=== PATIENT | male | born 1960 | race Caucasian/White ===

== ENCOUNTER 2023-05-17 04:21 | Emergency (ER) | payer BC ==
[~2023-05-17] VITALS: Ht 182.9 cm; Wt 79.4 kg
[2023-05-17] MEDS ORDERED: DEXAMETHASONE SOD PHOSPHATE 10 MG INJ ONE (05:36)
[2023-05-17] MEDS ORDERED: CEFTRIAXONE 1 G VIAL ONE (05:37)
[2023-05-17] MEDS ORDERED: CLINDAMYCIN 600 MG PIGGYBACK**ER OMNI IV ONE (05:50)
[2023-05-17] MEDS: DEXAMETHASONE SOD PHOSPHATE 4 MG INJ IV ONE (05:55)
[2023-05-17] MEDS: CLINDAMYCIN PHOSPHATE IV 600 MG in IV DEXTROSE 5% 100 ML IV ONE (05:55)
[2023-05-17] MEDS: IV NORMAL SALINE 500 ML IV ONE (05:55)
[2023-05-17 06:01] LABS: BASOPHILS % (AUTO) 0.4 % (0.0-2.0); EOSINOPHILS # (AUTO) 0.1 K/uL (0.0-0.7); EOSINOPHILS % (AUTO) 0.8 % (0.0-7.0); HEMATOCRIT 41.6 % (36.7-47.1); HEMOGLOBIN 14.3 g/dL (12.5-16.3); LYMPHOCYTES # (AUTO) 1.8 K/uL (0.8-4.8); LYMPHOCYTES % (AUTO) 18.3 % (20.5-51.5); MEAN CORPUSCULAR HEMOGLOBIN 31.4 uug (23.8-33.4); MEAN CORPUSCULAR HGB CONC 34 g/dL (32.5-36.3); MEAN CORPUSCULAR VOLUME 91.6 fL (73.0-96.2); MONOCYTES # (AUTO) 0.8 K/uL (0.1-1.30); MONOCYTES % (AUTO) 8.1 % (0.0-11.0); NEUTROPHILS % (AUTO) 72.4 % (38.5-71.5); PLATELET COUNT (AUTO) 238 K/uL (152-348); RED BLOOD CELL COUNT(AUTO) 4.54 MIL/uL (4.06-5.63); RED CELL DISTRIBUTION WIDTH 13.1 % (12.1-16.2); WHITE BLOOD COUNT (AUTO) 9.7 K/uL (3.6-10.2)
[2023-05-17 06:06] LABS: DIFFERENTIAL COMMENT 1
[2023-05-17 06:16] LABS: ALBUMIN 3.4 g/dL (3.4-5.0); BILIRUBIN,DIRECT 0.1 mg/dL (0.0-0.2); BILIRUBIN,TOTAL 0.8 mg/dL (0.2-1.0); CALCIUM 9.5 mg/dL (8.5-10.1); CREATININE 0.7 mg/dL (0.6-1.3); POTASSIUM 5.3 mmol/L (3.5-5.1); TOTAL PROTEIN, SERUM 7.8 g/dL (6.4-8.2)
[2023-05-17] MEDS ORDERED: IOHEXOL 300MG/ML 100 ML INFUS..BTL ONE (06:49)
[2023-05-17] MEDS ORDERED: SWABABLE VALVE TRANSFER SET EA MC ONE (06:49)
[2023-05-17] MEDS ORDERED: IV NORMAL SALINE 250 ML IV ONE (06:50)
[2023-05-17] MEDS: CEFTRIAXONE 2 G in IV DEXTROSE 5% 100 ML IV ONE (07:10)
[2023-05-17] MEDS ORDERED: CLIN300C12 PO (08:24)
[2023-05-17 08:30] VITALS: BP 134/62; O2SAT 99
== END 2023-05-18 08:32 | disposition home or self-care (01) ==
LOC: ER 04:29
DX: J02.9 Acute pharyngitis, unspecified (principal); M54.2 Cervicalgia
CPT/HCPCS: 99285; 96365; 70491; 96367; 96375; 80076; 80048; 85025; 85610; 86140; 36415; J0696 ×2; J3490 ×2; J1100; Q9967; J7040 ×2; A4606; A4663